=== PATIENT | male | born 1955 | race Caucasian/White ===

== ENCOUNTER 2022-12-20 11:41 | Inpatient (IN) | payer MEDICARE, OTHER ==
[2022-12-20] VITALS (7 sets, daily range): BP systolic 128–158; BP diastolic 49–77
[~2022-12-20] VITALS: Ht 175.2 cm; Wt 108.9 kg
[2022-12-20 12:25] LABS: BASO # 0.1 10*3/uL (0.0-0.1); BASO % 0.4 % (0.0-1.0); EOS # 0.1 10*3/uL (0.0-0.4); EOS % 0.7 % (1.0-4.0); HEMATOCRIT 42.3 % (42.0-52.0); LYMPH # 2.1 10*3/uL (1.3-4.4); LYMPH % 15.5 % (27.0-41.0); MEAN CELL VOLUME 90.4 fl (80.0-94.0); MEAN CORPUSCULAR HGB 30.8 pg (27.0-31.0); MEAN PLATELET VOLUME 9.2 fl (9.6-12.3); MONO # 1.4 10*3/uL (0.1-1.0); NEUT % 73.1 % (47.0-73.0); PLATELET COUNT AUTOMATED 223 10*3/uL (130-400); RED BLOOD COUNT 4.68 10*6/uL (4.50-5.90); RED CELL DISTRI WIDTH 12.3 % (0-14.5); WHITE BLOOD COUNT 13.6 10*3/uL (4.8-10.8)
[2022-12-20 12:36] LABS: ACT PARTIAL THROMBO TIME 25.3 SECONDS (20.0-32.1)
[2022-12-20 12:48] LABS: BILIRUBIN Negative (Negative); BLOOD Negative (Negative); CLARITY Cloudy (Clear); COLOR Yellow (Yellow); GLUCOSE Negative (Negative); KETONE Trace (Negative); LEUKO ESTERASE Negative (Negative); NITRITE Negative (Negative); PH 5.5 (4.5-8.0); SPECIFIC GRAVITY 1.025 (1.001-1.030)
[2022-12-20 12:51] LABS: ALKALINE PHOSPHATASE 76 U/L (46-116); BUN 11 mg/dl (9-23); CHLORIDE 105 mmol/L (98-107); LIPASE 30 U/L (12-53); SGPT/ALT 22 U/L (10-49); TOTAL PROTEIN 7.2 gm/dL (6.0-8.0)
[2022-12-20 13:01] LABS: MUCOUS 1+
[2022-12-20 13:02] LABS: BACTERIA 2+; EPITHELIAL CELLS 0-2; RBC 0-2 rbc/hpf (0-2)
[2022-12-20] MEDS ORDERED: AMLODIPINE BESYL5 MG PO (19:20)
[2022-12-20] MEDS ORDERED: ATORVASTATIN CA40 M1 PO (19:20)
[2022-12-20] MEDS ORDERED: LOSARTAN POTASS50 M1 PO (19:20)
[2022-12-21] VITALS: BP 135/65
[2022-12-21 06:45] LABS: BASO % 0.1 % (0.0-1.0); HEMATOCRIT 40.1 % (42.0-52.0); LYMPH # 1.1 10*3/uL (1.3-4.4); LYMPH % 6.7 % (27.0-41.0); MEAN CELL VOLUME 91.1 fl (80.0-94.0); MEAN CORPUSCULAR HGB 30.7 pg (27.0-31.0); MEAN CORPUSCULAR HGB CONC 33.7 g/dl (33.0-37.0); MEAN PLATELET VOLUME 9.7 fl (9.6-12.3); MONO # 0.8 10*3/uL (0.1-1.0); NEUT # 14.8 10*3/uL (2.3-7.9); NEUT % 87.7 % (47.0-73.0); PLATELET COUNT AUTOMATED 212 10*3/uL (130-400); WHITE BLOOD COUNT 16.9 10*3/uL (4.8-10.8)
[2022-12-21 07:30] LABS: BUN 13 mg/dl (9-23); CHLORIDE 104 mmol/L (98-107); CHOLESTEROL 120 mg/dL (<200); FREE T4 1.05 ng/dl (0.89-1.76); LDL CHOLESTEROL 53 mg/dL (9-159); TRIGLYCERIDES 38 mg/dl (<150)
[2022-12-21 08:00] VITALS: BP 133/68
[2022-12-21 08:06] LABS: VITAMIN D, 25-HYDROXY 37.1 ng/mL (30-100)
[2022-12-21 12:00] VITALS: BP 127/62
[2022-12-21] MEDS ORDERED: HYDROCODONE-AC1 EAC1 PO (12:36)
[2022-12-21] MEDS ORDERED: COLACE100 MG PO (12:36)
== END 2022-12-21 14:03 | disposition home or self-care (01) | DRG 343 ==
LOC: ED 11:41 → EDHOLD 15:41 → 4E 15:41
PROVIDERS: Internal Medicine; Student in an Organized Health Care Education/Training Program; ADMIT Family Medicine; ATTEND Family Medicine
PROC: 0DTJ4ZZ Resection of Appendix, Percutaneous Endoscopic Approach (ICD-10-PCS; principal; 2022-12-20)
DX: K35.80 Unspecified acute appendicitis (principal); E78.5 Hyperlipidemia, unspecified; I10 Essential (primary) hypertension; Z79.899 Other long term (current) drug therapy; R82.71 Bacteriuria; R73.9 Hyperglycemia, unspecified; D72.829 Elevated white blood cell count, unspecified; Z79.1 Long term (current) use of non-steroidal anti-inflammatories (NSAID)